=== PATIENT | male | born 1985 | race Caucasian/White ===

== ENCOUNTER 2022-05-26 07:40 | Emergency (ER) | payer MEDICAID ==
[~2022-05-26] VITALS: Ht 165.1 cm; Wt 54.5 kg
[2022-05-26 09:46] VITALS: BP 105/58
[2022-05-27] MEDS ORDERED: NAPR-56 PO (06:32)
== END 2022-05-26 09:49 | disposition home or self-care (01) ==
LOC: ER 07:41
DX: R07.89 Other chest pain (principal); Z79.899 Other long term (current) drug therapy
CPT/HCPCS: 71045; 99284

== ENCOUNTER 2022-05-26 22:30 | Emergency (ER) | payer MEDICAID ==
[~2022-05-26] VITALS: Ht 165.1 cm; Wt 52.3 kg
[2022-05-27 06:27] VITALS: BP 107/57
[2022-05-27] MEDS ORDERED: naproxen 500mg tablet PO ONE (06:30)
[2022-05-27] MEDS ORDERED: NAPR-56 PO (06:32)
== END 2022-05-27 07:05 | disposition home or self-care (01) ==
LOC: ER 22:32
DX: R07.81 Pleurodynia (principal); W51.XXXA Accidental striking against or bumped into by another person, initial encounter; Y93.89 Activity, other specified; Y92.89 Other specified places as the place of occurrence of the external cause; Y99.8 Other external cause status
CPT/HCPCS: 99282

== ENCOUNTER 2022-05-30 13:05 | Emergency (ER) | payer MEDICAID ==
[~2022-05-30] VITALS: Ht 165.1 cm; Wt 50.8 kg
[~2022-05-30 13:05] MED LIST: NAPR-56 PO
[2022-05-30 13:31] VITALS: BP 127/63
[2022-05-30] MEDS ORDERED: ESCI-8 PO ×2 (15:24)
[2022-05-30] MEDS ORDERED: NAPR-56 PO (15:24)
== END 2022-05-30 15:53 | disposition home or self-care (01) ==
LOC: ER 13:05
DX: R07.81 Pleurodynia (principal); Z76.0 Encounter for issue of repeat prescription
CPT/HCPCS: 99281

== ENCOUNTER 2022-11-09 15:22 | Inpatient (IN) | payer MEDICAID ==
[~2022-11-09] VITALS: Ht 165.1 cm; Wt 39.4 kg
[~2022-11-09 15:22] MED LIST changes: +ESCI-8 PO
[2022-11-09 20:46] LABS: BASOPHILS % (AUTO) 0.4 % (0-1); EOSINOPHILS # (AUTO) 0.1 X10'3 (0-0.9); LYMPHOCYTES # (AUTO) 0.8 X10'3 (1.1-4.8); LYMPHOCYTES % (AUTO) 32.3 % (21-51); MEAN CORPUSCULAR HEMOGLOBIN 39.2 PG (27.0-31.0); MEAN CORPUSCULAR HGB CONC 35.8 g/dL (33.0-36.5); MEAN CORPUSCULAR VOLUME 109.3 FL (78-98); MEAN PLATELET VOLUME 9.7 FL (7.4-10.4); MONOCYTES # (AUTO) 0.1 X10'3 (0-0.9); NEUTROPHILS # (AUTO) 1.5 X10'3 (1.8-7.7); NEUTROPHILS % (AUTO) 60.3 % (42-75); PLATELET COUNT 115 X10'3 (140-440); RED BLOOD COUNT 1.21 X10'6 (4.70-6.10); RED CELL DISTRIBUTION WIDTH 36.3 % (11.5-14.5); WHITE BLOOD COUNT 2.5 X10'3 (4.5-11.0)
[2022-11-09 20:52] LABS: ALANINE AMINOTRANSFERASE 128 U/L (12-78); ALBUMIN 4.7 G/DL (3.4-5.0); ALBUMIN/GLOBULIN RATIO 1.8 (1.1-1.5); ALKALINE PHOSPHATASE 36 IU/L (46-116); ANION GAP 9 (8-16); BLOOD UREA NITROGEN 28 MG/DL (7-18); BUN/CREATININE RATIO 35.4 (10.0-20.0); CHLORIDE 100 MMOL/L (99-107); CREATININE 0.79 MG/DL (0.60-1.10); GLUCOSE 82 MG/DL (70-104); LIPASE 83 U/L (73-393); SODIUM 136 MMOL/L (135-145); TOTAL PROTEIN 7.3 G/DL (6.4-8.2); eCRCL 73 ML/MIN; eGFR > 90 ML/MIN
[2022-11-09 20:55] LABS: HEMOGLOBIN 4.7 g/dl (14.0-17.9)
[2022-11-09 20:56] LABS: HEMATOCRIT 13.2 % (42.0-52.0)
[2022-11-09 21:04] LABS: POTASSIUM 4.2 MMOL/L (3.5-5.1)
[2022-11-09] MEDS ORDERED: pantoprazole 40MG/NS 100ML BAG 100 ML IV ONE (21:05)
[2022-11-09] MEDS ORDERED: pantoprazole 40mg IV 80 MG in normal saline 100ml IV soln 100 ML IV ONE (21:05)
[2022-11-09 21:11] LABS: ASPARTATE AMINO TRANSFERASE 342 U/L (10-37)
[2022-11-09 21:28] LABS: RED BLOOD COUNT 1.24 X10'6 (4.70-6.10); RETICULOCYTE % (AUTO) 1.3 % (0.5-1.5)
[2022-11-09 21:31] LABS: MAGNESIUM 2.1 MG/DL (1.5-2.4)
[2022-11-09 21:32] LABS: ANISOCYTOSIS 3+; PLATELET ESTIMATE DECREASED; POLYCHROMASIA 1+; TOTAL CELLS COUNTED 100
[2022-11-09 21:32] LABS: ETHANOL < 10 MG/DL (<10)
[2022-11-09 21:33] LABS: TEAR DROP CELLS 2+
[2022-11-09 21:34] LABS: ELLIPTOCYTES FEW; SCHISTOCYTES 1+
[2022-11-09 21:34] LABS: APTT 23 SECONDS (22-32); INR 1.2 INR; PROTHROMBIN TIME 12.3 SECONDS (9.0-12.0)
[2022-11-09] MEDS ORDERED: iohexol 300mg/ml 100ml inj. ONE (21:57)
[2022-11-09] MEDS: pantoprazole 40MG/NS 100ML BAG 100 ML IV SCH (22:10)
[2022-11-10] VITALS (12 sets, daily range): BP systolic 89–115; BP diastolic 41–68; PULSE 46–81; RESP 12–18; TEMP 97.8–98.5; O2SAT 97–100
[2022-11-10] MEDS ORDERED: ondansetron/PF 4mg/2ml inj IV PRN (00:20)
[2022-11-10] MEDS ORDERED: potassium Cl 20 mEq SR tablet PO PRN ×2 (00:20)
[2022-11-10] MEDS: normal saline 1000ml 1,000 ML IV SCH ×3 (00:20→20:20)
[2022-11-10] MEDS ORDERED: magnesium Cl slow-release 64mg tablet PO PRN (00:20)
[2022-11-10] MEDS ORDERED: magnesium 2GM in 50ml NS 50 ML IV PRN (00:20)
[2022-11-10] MEDS ORDERED: diphenhydrAMINE 25mg capsule PO PRN (00:20)
[2022-11-10] MEDS ORDERED: magnesium 4gm in 100ml NS 100 ML IV PRN (00:20)
[2022-11-10] MEDS ORDERED: potassium Cl 40MEQ/1/2NS 520ml 520 ML IV PRN (00:20)
--- NOTE | 2022-11-10 06:20 | NUR ---
Problems reprioritized. Patient report given, questions answered & plan of care reviewed with KAYDEN THAKUR.
--- NOTE | 2022-11-10 06:30 | NUR ---
received report from elizabeth mijares
[2022-11-10] MEDS: K and/or MAG REPLACEMENT MC SCH ×2 (07:33→20:00)
[2022-11-10] MEDS ORDERED: dextrose 50%-water 50ml dispensing syringe IV PRN (07:40)
[2022-11-10] MEDS ORDERED: haloperidol lactate 5mg/ml inj IM PRN (07:40)
[2022-11-10] MEDS ORDERED: haloperidol 5mg tablet PO PRN (07:40)
[2022-11-10] MEDS ORDERED: dicyclomine 10 MG capsule PO PRN (07:40)
[2022-11-10] MEDS ORDERED: LORazepam 2 mg/ml vial IV PRN (07:40)
[2022-11-10] MEDS ORDERED: thiamine 100mg/ml 2ml inj. IV SCH (08:00)
[2022-11-10] MEDS ORDERED: THIAMINE IV SCH ×3 (08:07→08:11)
[2022-11-10] MEDS ORDERED: NORMAL SALINE IV SCH ×3 (08:07→08:11)
[2022-11-10] MEDS: ESCITALOPRAM OXALATE 5 MG TABLET PO SCH (08:12)
[2022-11-10] MEDS: folic acid 1mg/0.2ml inj IV SCH (09:05)
[2022-11-10] MEDS: multivitamins, therapeutics tablet PO SCH (09:07)
[2022-11-10] MEDS ORDERED: pneumococcal 23-VAL P-sac vacc 25 mcg/0.5ml vial IMVAC ONE (10:00)
[2022-11-10 10:06] LABS: BILIRUBIN,URINE NEGATIVE (Neg); CLARITY,URINE CLEAR (Clear); COLOR,URINE YELLOW (Yellow); GLUCOSE, URINE NEGATIVE (Neg); KETONES,URINE NEGATIVE (Neg); LEUKOCYTE ESTERASE ,URINE NEGATIVE (Neg); NITRITES, URINE NEGATIVE (Neg); OCCULT BLOOD,URINE TRACE-INTACT (Neg); PH,URINE 6.5 (4.8-8.0); PROTEIN,URINE 30 mg/dl (Neg); UROBILINOGEN,URINE >=8.0 E.U/dL (0.2-1.0)
[2022-11-10 10:07] LABS: BASOPHILS % (AUTO) 0.3 % (0-1); EOSINOPHILS # (AUTO) 0.1 X10'3 (0-0.9); EOSINOPHILS % (AUTO) 4.9 % (0-6); HEMATOCRIT 26.5 % (42.0-52.0); HEMOGLOBIN 9.4 g/dl (14.0-17.9); LYMPHOCYTES # (AUTO) 0.8 X10'3 (1.1-4.8); LYMPHOCYTES % (AUTO) 31.5 % (21-51); MEAN CORPUSCULAR HEMOGLOBIN 36.6 PG (27.0-31.0); MEAN CORPUSCULAR HGB CONC 35.5 g/dL (33.0-36.5); MEAN CORPUSCULAR VOLUME 103.2 FL (78-98); MONOCYTES # (AUTO) 0.1 X10'3 (0-0.9); MONOCYTES % (AUTO) 3.4 % (2-12); NEUTROPHILS # (AUTO) 1.6 X10'3 (1.8-7.7); NEUTROPHILS % (AUTO) 59.9 % (42-75); PLATELET COUNT 109 X10'3 (140-440); RED BLOOD COUNT 2.57 X10'6 (4.70-6.10); RED CELL DISTRIBUTION WIDTH 23.8 % (11.5-14.5); WHITE BLOOD COUNT 2.6 X10'3 (4.5-11.0)
[2022-11-10 10:18] LABS: UA COLLECTION TYPE URINAL
[2022-11-10 10:24] LABS: URINE AMPHETAMINE SCREEN POSITIVE (Neg); URINE BARBITUATE SCREEN NEGATIVE (Neg); URINE BENZODIAZEPINES SCREEN NEGATIVE (Neg); URINE CANNABINOID SCREEN NEGATIVE (Neg); URINE COCAINE SCREEN NEGATIVE (Neg); URINE METHADONE SCREEN NEGATIVE (Neg); URINE OPIATE SCREEN NEGATIVE (Neg); URINE PHENCYCLIDINE SCREEN NEGATIVE (Neg)
[2022-11-10 10:27] LABS: BACTERIA,URINE 1+ /HPF (Neg); RBC,URINE 0-2 /HPF (0-2); SQUAMOUS EPITHELIAL CELL,UR FEW /LPF (FEW); WBC,URINE 0-4 /HPF (0-4)
[2022-11-10 10:43] LABS: CHOL/HDL RATIO 5.5 (0.00-4.99); CHOLESTEROL 133 MG/DL (0-200); HDL CHOLESTEROL 24 MG/DL (35-60); LDL CHOLESTEROL 79 MG/DL (50-100); MAGNESIUM 2.3 MG/DL (1.5-2.4); TRIGLYCERIDES 142 MG/DL (20-135)
[2022-11-10 10:44] LABS: TOTAL CELLS COUNTED 100
[2022-11-10 10:45] LABS: ANISOCYTOSIS 3+; ELLIPTOCYTES FEW; HYPOCHROMASIA 1+; PLATELET ESTIMATE DECREASED; SCHISTOCYTES 1+
[2022-11-10 10:46] LABS: POLYCHROMASIA 1+; TEAR DROP CELLS 1+
[2022-11-10 10:48] LABS: BILIRUBIN,DIRECT 0.4 MG/DL (0-0.3); POTASSIUM 3.9 MMOL/L (3.5-5.1)
[2022-11-10 11:07] LABS: HEMOGLOBIN A1C 5.9 % (4.5-6.2)
[2022-11-10 11:59] LABS: FREE T4 (FREE THYROXINE) 0.77 NG/DL (0.73-1.40)
[2022-11-10 12:01] LABS: HIV ANTIBODY 1&2 RAPID NON-REACTIVE (Neg)
[2022-11-10] MEDS ORDERED: levoTHYROXINE 25mcg tablet PO ONE (12:20)
[2022-11-10] MEDS ORDERED: thiamine inj. 200 MG in normal saline 100ml IV soln 100 ML IV SCH (14:43)
--- NOTE | 2022-11-10 15:12 | NUR ---
Malnutrition consult: Pt admit for pancytopenia, profound macrocytic anemia with a history of homelessness and meth use on admit per EMR. Per consult "pt losing wt without trying" and per RN malnutrition screen pt reports a wt loss of 34 or more wt loss as well as a decreased in PO intake/appetite. Scaled wt this admit of 39.4 kg (87 pounds) and prior wt hx of 54.55kg (120 pounds) on 06/06/22 indicate a wt loss of 33 pounds in 5 months. Pt also with a low BMI of 14.5. Pt seen at bedside, states he's been homeless for 8 years on and off and tries to eat when he can. Pt also states he hasn't had a good appetite for a few weeks now due to feeling sick. Suspected inadequate prolonged intake related to unstable housing difficulties per pt's report. During visit pt was eating lunch and states appetite is getting better; communicated food preferences such as mac and cheese, ice cream, and soda one time for other meals. Additionally pt presents with mild weakness. Pt meets a minimum of two criteria of malnutrition. LBM on 11/09 per EMR. Will continue to follow. Addendum: 11/10/22 at [address] Amended: Links added.
--- NOTE | 2022-11-10 15:45 | NUR ---
currently patient is resting, i woke patient up to hook him back up to his iv fluids and patient refused to have his iv fluids at this time, continue to educate and to monitor patient
[2022-11-10] MEDS ORDERED: cyanocobalamin 1,000 mcg/ml inj IM ONE (18:00)
--- NOTE | 2022-11-10 18:00 | NUR ---
PT REFUSED 1800 VITALS
--- NOTE | 2022-11-10 18:38 | NUR ---
GAVE REPORT TO KAYDEN MARTIN
[2022-11-10] MEDS: thiamine inj. 200 MG in normal saline 100ml IV soln 100 ML IV SCH (22:01)
--- NOTE | 2022-11-10 23:41 | NUR ---
Pt states he had a hard bowel movement today 11/10. Addendum: 11/10/22 at 2342 by Belgica BROWN Amended: Links added.
[2022-11-11] MEDS: normal saline 1000ml 1,000 ML IV SCH ×3 (05:50→23:50)
[2022-11-11 06:00] VITALS: BP 108/57; PULSE 61; RESP 16; TEMP 98.6; O2SAT 100
--- NOTE | 2022-11-11 06:00 | NUR ---
Patient in room [facility]TH[facility] 4010. I have received report from KAYDEN Peña and had the opportunity to ask questions and assume patient care.
--- NOTE | 2022-11-11 06:00 | NUR ---
Patient in room ORTH[facility] 4010. I have received report from RN Lily,KAYDEN and had the opportunity to ask questions and assume patient care.
--- NOTE | 2022-11-11 06:50 | NUR ---
Problems reprioritized. Patient report given, questions answered & plan of care reviewed with KAYDEN THAKUR.
[2022-11-11 07:05] LABS: BASOPHILS % (AUTO) 0.2 % (0-1); EOSINOPHILS # (AUTO) 0.2 X10'3 (0-0.9); HEMATOCRIT 22.4 % (42.0-52.0); HEMOGLOBIN 7.9 g/dl (14.0-17.9); LYMPHOCYTES # (AUTO) 0.9 X10'3 (1.1-4.8); MONOCYTES # (AUTO) 0.1 X10'3 (0-0.9); NEUTROPHILS % (AUTO) 54.2 % (42-75); RED BLOOD COUNT 2.18 X10'6 (4.70-6.10); WHITE BLOOD COUNT 2.5 X10'3 (4.5-11.0)
[2022-11-11 07:06] LABS: ANION GAP 4 (8-16); BLOOD UREA NITROGEN 17 MG/DL (7-18); BUN/CREATININE RATIO 24.6 (10.0-20.0); CALCIUM 8.9 MG/DL (8.5-10.1); CHLORIDE 104 MMOL/L (99-107); CREATININE 0.69 MG/DL (0.60-1.10); GLUCOSE 69 MG/DL (70-104); MAGNESIUM 1.9 MG/DL (1.5-2.4); SODIUM 139 MMOL/L (135-145); TOTAL CARBON DIOXIDE 30.8 MMOL/L (24-32); eCRCL 83 ML/MIN; eGFR > 90 ML/MIN
[2022-11-11 07:09] LABS: EOSINOPHILS % (AUTO) 6.2 % (0-6); LYMPHOCYTES % (AUTO) 36.5 % (21-51); MEAN CORPUSCULAR HEMOGLOBIN 36.1 PG (27.0-31.0); MEAN CORPUSCULAR HGB CONC 35.2 g/dL (33.0-36.5); MEAN CORPUSCULAR VOLUME 102.6 FL (78-98); MEAN PLATELET VOLUME 9.5 FL (7.4-10.4); MONOCYTES % (AUTO) 2.9 % (2-12); NEUTROPHILS # (AUTO) 1.4 X10'3 (1.8-7.7); PLATELET COUNT 93 X10'3 (140-440); RED CELL DISTRIBUTION WIDTH 24.5 % (11.5-14.5)
[2022-11-11 07:10] LABS: PHOSPHORUS 5.8 MG/DL (2.3-4.5); POTASSIUM 4.3 MMOL/L (3.5-5.1)
--- NOTE | 2022-11-11 07:35 | NUR ---
Patient in room [facility]TH[facility] 4010. I have received report from KAYDEN Peña and had the opportunity to ask questions and assume patient care.
--- NOTE | 2022-11-11 07:36 | NUR ---
Notified resident that pt has positive blood culture ([id number]/ gram- Gabriel) 20.46 M L arm.
[2022-11-11 08:00] VITALS: RESP 16; O2SAT 100
[2022-11-11] MEDS: ESCITALOPRAM OXALATE 5 MG TABLET PO SCH (08:00)
[2022-11-11] MEDS: K and/or MAG REPLACEMENT MC SCH ×2 (08:00→18:56)
[2022-11-11] MEDS: folic acid 1mg/0.2ml inj IV SCH (08:42)
[2022-11-11] MEDS: multivitamins, therapeutics tablet PO SCH (08:42)
[2022-11-11] MEDS: thiamine inj. 200 MG in normal saline 100ml IV soln 100 ML IV SCH (08:44)
[2022-11-11] MEDS: levoTHYROXINE 25mcg tablet PO SCH (08:55)
[2022-11-11] MEDS: piperacillin/tazo 3.375gm/50ml 50 ML IV SCH ×3 (09:40→23:50)
[2022-11-11 10:00] VITALS: BP 109/69; PULSE 78; RESP 16; TEMP 98; O2SAT 95
[2022-11-11] MEDS ORDERED: pneumococcal 23-VAL P-sac vacc 25 mcg/0.5ml vial IMVAC ONE (10:00)
[2022-11-11 10:40] LABS: NUCLEATED RED BLOOD CELLS 2 /100WBC (0-0); TOTAL CELLS COUNTED 100
[2022-11-11 10:41] LABS: ANISOCYTOSIS 3+; MICROCYTOSIS 1+; PLATELET ESTIMATE DECREASED; POLYCHROMASIA 1+; TEAR DROP CELLS 1+
[2022-11-11 10:42] LABS: SCHISTOCYTES 1+
--- NOTE | 2022-11-11 11:54 | NUR ---
Per dietary pt with several food preferences. D/w RN who states pt has been very hungry. Pt documented with 100% PO intake on regular diet. Will send fruit, gelatin, and double protein TID to assist with satiety and honor patient's food preferences per d/w RN, d/w dietary. Will continue to follow and monitor need for additional nutrition intervention. Addendum: 11/11/22 at [address] Amended: Links added.
[2022-11-11] MEDS: thiamine 100mg/ml 2ml inj. IV SCH ×2 (13:10→20:53)
[2022-11-11 18:00] VITALS: BP 116/41; PULSE 62; RESP 14; TEMP 98.2; O2SAT 94
--- NOTE | 2022-11-11 18:15 | NUR ---
Patient in room [facility]TH[facility] 4010. I have received report from Mindy MONIQUE and had the opportunity to ask questions and assume patient care.
--- NOTE | 2022-11-11 18:16 | NUR ---
Problems reprioritized. Patient report given, questions answered & plan of care reviewed with KAYDEN Huber.
--- NOTE | 2022-11-11 18:16 | NUR ---
Problems reprioritized. Patient report given, questions answered & plan of care reviewed with KAYDEN Wright.
[2022-11-11 20:00] VITALS: RESP 14; O2SAT 94
[2022-11-11 22:00] VITALS: BP 102/54; PULSE 64; RESP 16; TEMP 97.7; O2SAT 96
[2022-11-12] VITALS (8 sets, daily range): BP systolic 107–136; BP diastolic 55–76; PULSE 61–84; RESP 12–16; TEMP 98.1–98.7; O2SAT 97–100
--- NOTE | 2022-11-12 03:49 | NUR ---
Pt is refusing to be put on telemetry at this time
--- NOTE | 2022-11-12 05:57 | NUR ---
Problems reprioritized. Patient report given, questions answered & plan of care reviewed with Behzad ESPINAL.
--- NOTE | 2022-11-12 06:32 | NUR ---
Patient in room ORTH[facility] 4010. I have received report from KAYDEN Wright and had the opportunity to ask questions and assume patient care.
[2022-11-12 07:22] LABS: BASOPHILS % (AUTO) 0.2 % (0-1); EOSINOPHILS # (AUTO) 0.2 X10'3 (0-0.9); EOSINOPHILS % (AUTO) 6.5 % (0-6); HEMATOCRIT 24.3 % (42.0-52.0); HEMOGLOBIN 8.3 g/dl (14.0-17.9); LYMPHOCYTES # (AUTO) 0.7 X10'3 (1.1-4.8); LYMPHOCYTES % (AUTO) 25.1 % (21-51); MEAN CORPUSCULAR HEMOGLOBIN 35.8 PG (27.0-31.0); MEAN CORPUSCULAR HGB CONC 34.2 g/dL (33.0-36.5); MEAN PLATELET VOLUME 9.7 FL (7.4-10.4); MONOCYTES # (AUTO) 0.3 X10'3 (0-0.9); MONOCYTES % (AUTO) 10.1 % (2-12); NEUTROPHILS # (AUTO) 1.7 X10'3 (1.8-7.7); NEUTROPHILS % (AUTO) 58.1 % (42-75); PLATELET COUNT 95 X10'3 (140-440); RED BLOOD COUNT 2.31 X10'6 (4.70-6.10); RED CELL DISTRIBUTION WIDTH 23.6 % (11.5-14.5)
[2022-11-12] MEDS: multivitamins, therapeutics tablet PO SCH (07:25)
[2022-11-12] MEDS: levoTHYROXINE 25mcg tablet PO SCH (07:28)
[2022-11-12 07:29] LABS: ANION GAP 6 (8-16); BLOOD UREA NITROGEN 15 MG/DL (7-18); BUN/CREATININE RATIO 21.7 (10.0-20.0); CALCIUM 8.8 MG/DL (8.5-10.1); CHLORIDE 102 MMOL/L (99-107); CREATININE 0.69 MG/DL (0.60-1.10); GLUCOSE 73 MG/DL (70-104); MAGNESIUM 1.8 MG/DL (1.5-2.4); SODIUM 140 MMOL/L (135-145); TOTAL CARBON DIOXIDE 31.6 MMOL/L (24-32); eCRCL 83 ML/MIN; eGFR > 90 ML/MIN
[2022-11-12 07:30] LABS: ALBUMIN 4.2 G/DL (3.4-5.0); MEAN CORPUSCULAR VOLUME 103.4 FL (78-98)
[2022-11-12 07:36] LABS: PHOSPHORUS 5.4 MG/DL (2.3-4.5); POTASSIUM 3.8 MMOL/L (3.5-5.1)
[2022-11-12] MEDS ORDERED: LORazepam 1 MG tablet PO PRN (07:40)
[2022-11-12] MEDS ORDERED: LORazepam 2 mg/ml vial IV PRN (07:40)
[2022-11-12] MEDS: K and/or MAG REPLACEMENT MC SCH ×2 (08:00→20:00)
[2022-11-12] MEDS: ESCITALOPRAM OXALATE 5 MG TABLET PO SCH (08:00)
[2022-11-12] MEDS: thiamine 100mg/ml 2ml inj. IV SCH ×3 (08:02→21:45)
[2022-11-12] MEDS: folic acid 1mg/0.2ml inj IV SCH (08:02)
[2022-11-12] MEDS: piperacillin/tazo 3.375gm/50ml 50 ML IV SCH ×3 (08:10→22:00)
[2022-11-12 08:49] LABS: TOTAL CELLS COUNTED 100
[2022-11-12 08:50] LABS: ANISOCYTOSIS 3+; LARGE PLATELETS FEW; PLATELET ESTIMATE DECREASED; POIKILOCYTOSIS 1+
[2022-11-12 08:51] LABS: MICROCYTOSIS 1+; SCHISTOCYTES 1+; TEAR DROP CELLS 1+
[2022-11-12 08:52] LABS: POLYCHROMASIA 1+
[2022-11-12] MEDS: acetaminophen 325mg tablet PO PRN (09:23)
[2022-11-12 10:13] LABS: HBSAG SCREEN Negative (Negative); HEP A AB, IGM Negative (Negative); HEP B CORE AB, IGM Negative (Negative); HEPATITIS C VIRUS ANTIBODY Non Reactive (Non Reactive)
--- NOTE | 2022-11-12 12:22 | NUR ---
Student documentation: Yulia Greenfield INGOT STRIPPER instructor for [facility], have reviewed all interventions, assessments performed and documented by Rocio Student Nurse for [facility].
[2022-11-12] MEDS: normal saline 1000ml 1,000 ML IV SCH ×2 (15:39→23:18)
--- NOTE | 2022-11-12 17:17 | NUR ---
Charting by Taty CEDILLO reviewed by Mariel Sarmiento RN
--- NOTE | 2022-11-12 18:00 | NUR ---
Received report from AM shift nurse Behzad. Pt in room with . No s/s of distress at this time.
[2022-11-12 18:11] LABS: OCCULT BLOOD STOOL NEGATIVE (Neg)
--- NOTE | 2022-11-12 18:32 | NUR ---
Problems reprioritized. Patient report given, questions answered & plan of care reviewed with TEDDY Greene.
--- NOTE | 2022-11-12 18:36 | NUR ---
PROCUREMENT COST COORDINATOR documentation: I have reviewed and agree with all interventions, assessments performed and documented by Constantin Hagen LVN.
--- NOTE | 2022-11-12 21:46 | NUR ---
found zosyn pump battery and turned off. started the zosyn again. will change next dose or skip it.
--- NOTE | 2022-11-12 22:33 | NUR ---
focused assessment. pt had fit of rage when told his would not be able to spend the night. yelling and cursing at staff and . offered to get her belongings if they were up here to keep her warm enough. security notified to assist if she was around building. supivisor notified as well. patient denies needs - refuses to allow me to listen to his lungs or heart. will attempt later. IV intact left FA 20 guage. pt ambulates to bathroom. has had BM today per report.
[2022-11-13 06:00] VITALS: BP 110/67; PULSE 78; RESP 16; TEMP 98.2; O2SAT 100
[2022-11-13 06:26] LABS: HEMATOCRIT 23.1 % (42.0-52.0); HEMOGLOBIN 7.9 g/dl (14.0-17.9); MEAN CORPUSCULAR HEMOGLOBIN 36.1 PG (27.0-31.0); MEAN CORPUSCULAR HGB CONC 34.4 g/dL (33.0-36.5); MEAN CORPUSCULAR VOLUME 104.9 FL (78-98); MEAN PLATELET VOLUME 9.7 FL (7.4-10.4); PLATELET COUNT 84 X10'3 (140-440); RED CELL DISTRIBUTION WIDTH 22.8 % (11.5-14.5)
[2022-11-13 06:27] LABS: ALBUMIN 3.8 G/DL (3.4-5.0); ANION GAP 6 (8-16); BLOOD UREA NITROGEN 12 MG/DL (7-18); CALCIUM 9.2 MG/DL (8.5-10.1); CHLORIDE 104 MMOL/L (99-107); CREATININE 0.75 MG/DL (0.60-1.10); GLUCOSE 90 MG/DL (70-104); MAGNESIUM 1.7 MG/DL (1.5-2.4); PHOSPHORUS 4.7 MG/DL (2.3-4.5); SODIUM 140 MMOL/L (135-145); TOTAL CARBON DIOXIDE 30.3 MMOL/L (24-32); eCRCL 77 ML/MIN; eGFR > 90 ML/MIN
--- NOTE | 2022-11-13 06:43 | NUR ---
Patient in room ORTHO 4010. I have received report from TEDDY Greene and had the opportunity to ask questions and assume patient care.
[2022-11-13 07:28] LABS: ANISOCYTOSIS 3+; PLATELET ESTIMATE DECREASED; TOTAL CELLS COUNTED 100
[2022-11-13 07:29] LABS: POIKILOCYTOSIS FEW; POLYCHROMASIA FEW; TEAR DROP CELLS 1+
[2022-11-13] MEDS: acetaminophen 325mg tablet PO PRN (07:33)
[2022-11-13] MEDS: levoTHYROXINE 25mcg tablet PO SCH (07:33)
[2022-11-13] MEDS: multivitamins, therapeutics tablet PO SCH (07:33)
[2022-11-13 08:00] VITALS: RESP 17; O2SAT 99
[2022-11-13] MEDS: K and/or MAG REPLACEMENT MC SCH ×2 (08:00→20:45)
[2022-11-13] MEDS: ESCITALOPRAM OXALATE 5 MG TABLET PO SCH (08:00)
[2022-11-13] MEDS: thiamine 100mg/ml 2ml inj. IV SCH ×3 (08:10→21:27)
[2022-11-13] MEDS: piperacillin/tazo 3.375gm/50ml 50 ML IV SCH ×3 (08:11→23:50)
[2022-11-13] MEDS: normal saline 1000ml 1,000 ML IV SCH ×2 (08:20→18:20)
[2022-11-13] MEDS ORDERED: cyanocobalamin 1,000 mcg/ml inj IM ONE (08:40)
[2022-11-13 10:00] VITALS: BP 108/62; PULSE 83; RESP 15; TEMP 97.7; O2SAT 100
--- NOTE | 2022-11-13 16:00 | NUR ---
WELT TRIMMING MACHINE OPERATOR documentation: I have reviewed and agree with all interventions, assessments performed and documented by Behzad Hagen LVN.
[2022-11-13 18:00] VITALS: BP 112/58; PULSE 88; RESP 18; TEMP 98.4; O2SAT 100
--- NOTE | 2022-11-13 18:00 | NUR ---
Received report from AM shift nurse Behzad. Assumed care, Pt in room watching TV, no s/s of distress.
--- NOTE | 2022-11-13 18:18 | NUR ---
Problems reprioritized. Patient report given, questions answered & plan of care reviewed with TEDDY Greene.
[2022-11-13 20:00] VITALS: RESP 18
[2022-11-13 22:00] VITALS: BP 107/54; PULSE 89; RESP 17; TEMP 97.9; O2SAT 99
[2022-11-14] MEDS: normal saline 1000ml 1,000 ML IV SCH (02:40)
--- NOTE | 2022-11-14 05:54 | NUR ---
I agree with ENVIRONMENTAL EPIDEMIOLOGIST assessment charting.
[2022-11-14 06:00] VITALS: BP 104/65; PULSE 84; RESP 17; TEMP 97.3; O2SAT 99
--- NOTE | 2022-11-14 06:03 | NUR ---
Patient in room ORTHO 4010. I have received report from TEDDY Greene and had the opportunity to ask questions and assume patient care.
[2022-11-14 07:12] LABS: BASOPHILS % (AUTO) 0.1 % (0-1); EOSINOPHILS # (AUTO) 0.2 X10'3 (0-0.9); HEMATOCRIT 23.1 % (42.0-52.0); LYMPHOCYTES # (AUTO) 0.8 X10'3 (1.1-4.8); NEUTROPHILS # (AUTO) 2.5 X10'3 (1.8-7.7)
[2022-11-14 07:15] LABS: ALBUMIN 3.7 G/DL (3.4-5.0); ANION GAP 7 (8-16); BLOOD UREA NITROGEN 16 MG/DL (7-18); BUN/CREATININE RATIO 18.8 (10.0-20.0); CHLORIDE 104 MMOL/L (99-107); CREATININE 0.85 MG/DL (0.60-1.10); GLUCOSE 84 MG/DL (70-104); MAGNESIUM 1.6 MG/DL (1.5-2.4); PHOSPHORUS 4.7 MG/DL (2.3-4.5); SODIUM 141 MMOL/L (135-145); TOTAL CARBON DIOXIDE 30.3 MMOL/L (24-32); eCRCL 68 ML/MIN; eGFR > 90 ML/MIN
[2022-11-14 07:17] LABS: EOSINOPHILS % (AUTO) 4.9 % (0-6); LYMPHOCYTES % (AUTO) 18.8 % (21-51); MEAN CORPUSCULAR HGB CONC 34.4 g/dL (33.0-36.5); MEAN CORPUSCULAR VOLUME 104.4 FL (78-98); MEAN PLATELET VOLUME 10.2 FL (7.4-10.4); MONOCYTES # (AUTO) 0.7 X10'3 (0-0.9); NEUTROPHILS % (AUTO) 59.2 % (42-75); PLATELET COUNT 75 X10'3 (140-440); RED BLOOD COUNT 2.22 X10'6 (4.70-6.10); RED CELL DISTRIBUTION WIDTH 22.6 % (11.5-14.5); WHITE BLOOD COUNT 4.2 X10'3 (4.5-11.0)
[2022-11-14] MEDS: levoTHYROXINE 25mcg tablet PO SCH (07:33)
[2022-11-14] MEDS: multivitamins, therapeutics tablet PO SCH (07:33)
[2022-11-14] MEDS ORDERED: LORazepam 2 mg/ml vial IV PRN (07:40)
[2022-11-14] MEDS ORDERED: LORazepam 1 MG tablet PO PRN (07:40)
[2022-11-14 08:00] VITALS: RESP 17; O2SAT 99
[2022-11-14] MEDS ORDERED: thiamine 100mg tablet PO SCH (08:00)
[2022-11-14] MEDS ORDERED: folic acid 1mg tablet PO SCH (08:00)
[2022-11-14] MEDS: K and/or MAG REPLACEMENT MC SCH (08:00)
[2022-11-14] MEDS: ESCITALOPRAM OXALATE 5 MG TABLET PO SCH (08:00)
[2022-11-14] MEDS: thiamine 100mg/ml 2ml inj. IV SCH (08:00)
[2022-11-14 08:12] LABS: ANISOCYTOSIS 3+; PLATELET ESTIMATE DECREASED; POLYCHROMASIA FEW; TOTAL CELLS COUNTED 100
[2022-11-14 08:13] LABS: SCHISTOCYTES FEW; TEAR DROP CELLS FEW
[2022-11-14] MEDS: piperacillin/tazo 3.375gm/50ml 50 ML IV SCH (08:19)
[2022-11-14] MEDS ORDERED: LEVO25TA7 PO (10:36)
[2022-11-14] MEDS ORDERED: CIPR-259 PO (10:36)
[2022-11-14] MEDS ORDERED: FOLI1TAB27 PO (10:36)
[2022-11-14] MEDS ORDERED: METR-159 PO (10:36)
[2022-11-14] MEDS ORDERED: thiamine tablet PO (10:36)
--- NOTE | 2022-11-14 10:55 | NUR ---
patient getting ready for discharge. patient was offered both IM pneumo vax and IM cyclo and patient refused. Stated he did not want to be poked by any more needles and wanted to get out of here.
--- NOTE | 2022-11-14 11:16 | NUR ---
SALES FORCE ADMINISTRATOR documentation: I have reviewed and agree with all interventions, assessments performed and documented by Behzad Hagen LVN.
--- NOTE | 2022-11-14 11:46 | NUR ---
Pt stable for discharge. IV discontinued prior to d/c. Patient signed all discharge paperwork. Left with all personal belongings and was given community resource and [facility] van information for follow up care. Patient was wheeled out of the facility with the assistance of one staff member and left on foot from the lobby. Patient was offered a lunch from the cafeteria and water and said he would be fine. Patient d/c at 11:15.
== END 2022-11-14 11:15 | disposition home or self-care (01) | DRG 660 ==
LOC: ER 15:23 → ED HOLD 11-10 00:27 → EDBEDREQ 11-10 01:16 → ORTHO 4S 11-10 02:10
PROVIDERS: ADMIT Internal Medicine; ATTEND Family Medicine
PROC: BW211ZZ Computerized Tomography (CT Scan) of Abdomen and Pelvis using Low Osmolar Contrast (ICD-10-PCS; 2022-11-09)
PROC: 30233N1 Transfusion of Nonautologous Red Blood Cells into Peripheral Vein, Percutaneous Approach (ICD-10-PCS; principal; 2022-11-10)
DX: D61.818 Other pancytopenia (principal); E43 Unspecified severe protein-calorie malnutrition; R78.81 Bacteremia; E53.8 Deficiency of other specified B group vitamins; E80.6 Other disorders of bilirubin metabolism; E03.9 Hypothyroidism, unspecified; L63.9 Alopecia areata, unspecified; L80 Vitiligo; R79.89 Other specified abnormal findings of blood chemistry; F32.A Depression, unspecified; R74.01 Elevation of levels of liver transaminase levels; Z59.00 Homelessness unspecified; Z28.21 Immunization not carried out because of patient refusal; Z56.0 Unemployment, unspecified; Z79.899 Other long term (current) drug therapy; Z68.1 Body mass index [BMI] 19.9 or less, adult
CPT/HCPCS: 36415; 36430; 74177; 76700; 80048; 80053; 80061; 80305; 80320; 81001; 82248; 82272; 82607; 83036; 83605; 83690; 83735; 84100; 84132; 84145; 84439; 84443; 85007; 85025; 85045; 85610; 85730; 86340; 86703; 86705; 86709; 86803; 86885; 86900; 86901; 86920; 87040; 87077; 87081; 87186; 87340; 87522; 90732; 93306; 99285; A6258; C9113; G0378; J2543; J3411; J3420; J3490; J7030; J7040; P9016; Q9967

== ENCOUNTER 2024-02-09 19:30 | Emergency (ER) | payer MEDICAID ==
[~2024-02-09] VITALS: Ht 165.1 cm; Wt 58.6 kg
[~2024-02-09 19:30] MED LIST changes: +FOLI1TAB27 PO; +LEVO25TA7 PO; -NAPR-56 PO; +thiamine tablet PO
[2024-02-09 19:32] VITALS: BP 138/84; PULSE 92; TEMP 98.7; O2SAT 97
[2024-02-09] MEDS ORDERED: ESCI-8 PO (20:01)
[2024-02-09 20:18] VITALS: RESP 18
[2024-02-10] MEDS ORDERED: levoTHYROXINE 25mcg tablet PO SCH (07:00)
== END 2024-02-09 20:20 | disposition home or self-care (01) ==
LOC: ER 19:31
DX: Z76.0 Encounter for issue of repeat prescription (principal); Z79.899 Other long term (current) drug therapy
CPT/HCPCS: 99281

== ENCOUNTER 2024-02-10 05:16 | Emergency (ER) | payer MEDICAID ==
[~2024-02-10] VITALS: Ht 165.1 cm; Wt 64.0 kg
[2024-02-10 05:22] VITALS: BP 123/85; PULSE 73; RESP 16; TEMP 97.3; O2SAT 96
== END 2024-02-10 06:59 | disposition home or self-care (01) ==
LOC: ER 05:17
DX: G47.62 Sleep related leg cramps (principal); Z76.0 Encounter for issue of repeat prescription; J00 Acute nasopharyngitis [common cold]; Z79.899 Other long term (current) drug therapy; Z59.00 Homelessness unspecified
CPT/HCPCS: 99281

== ENCOUNTER 2024-02-13 10:13 | Emergency (ER) | payer MEDICAID ==
[~2024-02-13] VITALS: Ht 167.6 cm; Wt 61.4 kg
[2024-02-13 10:15] VITALS: BP 129/65; PULSE 97; RESP 18; TEMP 97.5; O2SAT 99
[2024-02-13] MEDS ORDERED: ESCI-8 PO (10:57)
[2024-02-13] MEDS ORDERED: LEVO25TA7 PO (10:57)
== END 2024-02-13 11:06 | disposition home or self-care (01) ==
LOC: ER 10:14
DX: E03.9 Hypothyroidism, unspecified (principal); Z76.0 Encounter for issue of repeat prescription; Z59.00 Homelessness unspecified; Z79.899 Other long term (current) drug therapy
CPT/HCPCS: 99281